=== PATIENT | male | born 1935 | race Caucasian/White ===

== ENCOUNTER 2017-01-02 19:41 | Emergency (ER) | payer MEDICARE, OTHER ==
[2017-01-02 19:47] VITALS: TEMP 97.3
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
[2017-01-02] MEDS ORDERED: BACITRACIN 500 UNIT/GM OINT 28.4 GM TUBE TOPICAL ONE (20:29)
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
[2017-01-02 20:48] VITALS: BP 176/91; PULSE 75; RESP 18
== END 2017-01-02 20:50 | disposition home or self-care (01) ==
LOC: EC 19:41
DX: T23.242A Burn of second degree of multiple left fingers (nail), including thumb, initial encounter (principal); T23.211A Burn of second degree of right thumb (nail), initial encounter; T22.132A Burn of first degree of left upper arm, initial encounter; T31.0 Burns involving less than 10% of body surface; I10 Essential (primary) hypertension; E78.5 Hyperlipidemia, unspecified; Z79.82 Long term (current) use of aspirin; Z79.899 Other long term (current) drug therapy; X02.0XXA Exposure to flames in controlled fire in building or structure, initial encounter; Y93.89 Activity, other specified
CPT/HCPCS: 16020; 71020; 99283

== ENCOUNTER 2017-01-05 15:51 | Emergency (ER) | payer MEDICARE, OTHER ==
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
[2017-01-05 17:03] VITALS: BP 135/69; PULSE 72; RESP 16; TEMP 98.7
== END 2017-01-05 17:03 | disposition home or self-care (01) ==
LOC: EC 15:51
DX: L03.114 Cellulitis of left upper limb (principal); T23.202D Burn of second degree of left hand, unspecified site, subsequent encounter; T22.1 Burn of first degree of shoulder and upper limb, except wrist and hand; T31.0 Burns involving less than 10% of body surface; I10 Essential (primary) hypertension; E78.5 Hyperlipidemia, unspecified; Z79.82 Long term (current) use of aspirin; Z79.899 Other long term (current) drug therapy; X08.8XXD Exposure to other specified smoke, fire and flames, subsequent encounter; Y92.019 Unspecified place in single-family (private) house as the place of occurrence of the external cause
CPT/HCPCS: 99283

== ENCOUNTER → 2017-01-05 | Outpatient (CLI) | payer OTHER ==
--- NOTE | 2017-01-05 16:03 | US ---
EXAMINATION TYPE: US kidneys/renal and bladder DATE OF EXAM: 01/05/2017 COMPARISON: Correlation CT 04/08/2016 CLINICAL HISTORY: 81-year-old male with N19 UNSPECIFIED KIDNEY DISEASE. Pt states abnormal labs. TECHNIQUE: Multiple sonographic images of the kidneys and bladder were obtained. FINDINGS: Right Kidney: 9.9 x 5.4 x 5.2 cm without hydronephrosis. There is a 1.1 cm hypoechoic lesion in the lower pole. A 1.1 cm lesion was seen on the CT of 04/08/2016 as well. Left Kidney: 9.6 x 4.9 x 4.4 cm without hydronephrosis. No gross abnormality of the urine distended bladder. Neither ureteral jet is seen during the course o f the exam. IMPRESSION: 1. No hydronephrosis. 2. A 1.1 cm hypoechoic lesion within the lower pole right kidney. A complicated cyst and small solid mass are both in the differential. The former is considered more likely given the presence of a 1.1 c m lesion on the 04/08/2016 CT. 3. A 6-12 month follow-up renal ultrasound can be considered to reassess this area.
== END | disposition home or self-care (01) ==
LOC: RADUSWWP 15:27
PROVIDERS: ATTEND Family Medicine
DX: N28.1 Cyst of kidney, acquired (principal); N28.89 Other specified disorders of kidney and ureter
CPT/HCPCS: 76770

== ENCOUNTER 2017-02-03 22:24 | Emergency (ER) | payer MEDICARE, OTHER ==
[2017-02-03 22:41] VITALS: TEMP 97.8
[2017-02-03] MEDS ORDERED: HYDROcodone/APAP 10-325MG 1 EACH TAB PO ONE (23:23)
[2017-02-03 23:42] LABS: Basophils % (A) 0 %; CH 31.7; CHCM 34.9; Eosinophils # (A) 0.2 k/uL (0-0.7); Eosinophils % (A) 2 %; HCT 36.3 % (39.0-53.0); HDW 3.01; Luc # (Auto) 0.16; Luc % (Auto) 2; Lymphocytes % (A) 11 %; MCH 30.3 pg (25.0-35.0); MCHC 33.1 g/dL (31.0-37.0); MCV 91.3 fL (80.0-100.0); Mean Platelet Volume 7.5; Monocytes # (A) 0.4 k/uL (0-1.0); Monocytes % (A) 5 %; Neutrophils # (A) 7.1 k/uL (1.3-7.7); Neutrophils % (A) 80 %; RBC 3.97 m/uL (4.30-5.90); RDW 13.9 % (11.5-15.5); WBC 8.8 k/uL (3.8-10.6); WBC (Perox) 9.14
--- NOTE | 2017-02-03 23:45 | ED ---
Extremity Problem HPI - General Chief complaint: Extremity Problem,Nontraumatic Stated complaint: lump on elbow Time Seen by Provider: 02/03/17 22:51 Source: patient, RN notes reviewed, old records reviewed Mode of arrival: ambulatory Limitations: no limitations - History of Present Illness Initial comments: 81-year-old male presents emergency Department chief complaint of a swelling for the past day over his right elbow. Patient reports the pain whenever he does extension. He states that he did not have any trauma to the elbow. He does have a history of gout. Denies any fever or chills. Denies any drainage or redness over the elbow. He reports that he feels very warm. - Related Data Home Medications Medication Instructions Recorded Confirmed Aspirin EC [Ecotrin Low Dose] 81 mg PO DAILY 06/20/14 02/03/17 Atenolol [Tenormin] 25 mg PO HS 06/20/14 02/03/17 Albuterol Inhaler [Ventolin Hfa 1 puff INHALATION RT-QID PRN 02/03/17 02/03/17 Inhaler] Losartan Potassium [Cozaar] 100 mg PO DAILY 02/03/17 02/03/17 Simvastatin 40 mg PO HS 02/03/17 02/03/17 Previous Rx's Medication Instructions Recorded HYDROcodone/APAP 5-325MG [[place]uka 1 tab PO Q6HR PRN #12 tab 02/04/17 5-325] Naproxen 500 mg PO BID #20 tablet 02/04/17 Allergies Allergy/AdvReac Type Severity Reaction Status Date / Time No Known Allergies Allergy Verified 02/03/17 23:07 Review of Systems ROS Statement: Those systems with pertinent positive or pertinent negative responses have been documented in the HPI. ROS Other: All systems not noted in ROS Statement are negative. Past Medical History Past Medical History: Asthma, Hyperlipidemia, Hypertension History of Any Multi-Drug Resistant Organisms: None Reported Past Surgical History: Heart Catheterization With Stent Past Anesthesia/Blood Transfusion Reactions: No Reported Reaction Date of Last Stent Placement:: 1999 Past Psychological History: No Psychological Hx Reported Smoking Status: Never smoker Past Alcohol Use History: None Reported Past Drug Use History: None Reported - Past Family History Mother Family Medical History: Diabetes Mellitus General Exam - General Exam Comments Initial Comments: 81-year-old male. No distress. Limitations: no limitations General appearance: alert, in no apparent distress Head exam: Present: atraumatic Eye exam: Present: normal appearance, PERRL, EOMI. Absent: scleral icterus, conjunctival injection, periorbital swelling ENT exam: Present: normal exam, mucous membranes moist Neck exam: Present: normal inspection. Absent: tenderness, meningismus, lymphadenopathy Respiratory exam: Present: normal lung sounds bilaterally. Absent: respiratory distress, wheezes, rales, rhonchi, stridor Cardiovascular Exam: Present: regular rate, normal rhythm, normal heart sounds. Absent: systolic murmur, diastolic murmur, rubs, gallop, clicks GI/Abdominal exam: Present: soft, normal bowel sounds. Absent: distended, tenderness, guarding, rebound, rigid Extremities exam: Present: normal inspection, full ROM, normal capillary refill. Absent: tenderness, pedal edema, joint swelling, calf tenderness Right Upper Arm exam: Present: normal inspection, full ROM Elbow exam: Present: swelling, effusion, tenderness over radial head. Absent: normal inspection, full ROM Forearm Wrist exam: Present: normal inspection, full ROM Hand Wrist exam: Present: normal inspection, full ROM Neuro motor exam: Present: wrist extension intact, thumb opposition intact, thumb IP flexion intact, thumb adduction intact, fingers 2-5 abduction intact Vascular: Present: normal capillary refill Back exam: Present: normal inspection Neurological exam: Present: alert Psychiatric exam: Present: normal affect, normal mood Skin exam: Present: warm, dry, intact, normal color. Absent: rash Course Vital Signs 02/03/17 02/04/17 22:37 00:18 Temperature 97.8 F 97.8 F Pulse Rate 80 70 Respiratory 18 16 Rate Blood Pressure 167/79 128/70 O2 Sat by Pulse 98 100 Oximetry Procedures - Orthopedic Splinting/Casting Injury #1 Side: right Upper Extremity Injury Location: elbow Upper Extremity Immobilizer: posterior splint (long posterior splint. ) Medical Decision Making - Medical Decision Making 81-year-old male presents emergency Department chief complaint of a swelling for the past day over his right elbow. Patient reports the pain whenever he does extension. He states that he did not have any trauma to the elbow. He does have a history of gout. Denies any fever or chills. Denies any drainage or redness over the elbow. He reports that he feels very warm. Patient appears to have significant olecranon bursitis, elbow is swollen and warm. CBC wihtin normal limits, uric acid mildly elevated 8.8. Patient was placed in a posterior splint, as xray shows evidence of olecranon fracture, and questionable fracture of radial head. Patient denies any trauma to cause this. Patient will follow up with orthopedic. Discharged with antiinflammatories medication and pain medication. Orthopedic follow up advised. - Lab Data Result diagrams: 02/03/17 23:36 02/03/17 23:36 Lab Results 02/03/17 02/03/17 Range/Units 23:36 23:36 WBC 8.8 (3.8-10.6) k/uL RBC 3.97 L (4.30-5.90) m/uL Hgb 12.0 L (13.0-17.5) gm/dL Hct 36.3 L (39.0-53.0) % MCV 91.3 (80.0-100.0) fL MCH 30.3 (25.0-35.0) pg MCHC 33.1 (31.0-37.0) g/dL RDW 13.9 (11.5-15.5) % Plt Count 158 (150-450) k/uL Neutrophils % 80 % Lymphocytes % 11 % Monocytes % 5 % Eosinophils % 2 % Basophils % 0 % Neutrophils # 7.1 (1.3-7.7) k/uL Lymphocytes # 1.0 (1.0-4.8) k/uL Monocytes # 0.4 (0-1.0) k/uL Eosinophils # 0.2 (0-0.7) k/uL Basophils # 0.0 (0-0.2) k/uL Sodium 140 (137-145) mmol/L Potassium 4.6 (3.5-5.1) mmol/L Chloride 109 H (98-107) mmol/L Carbon Dioxide 20 L (22-30) mmol/L Anion Gap 11 mmol/L BUN 27 H (9-20) mg/dL Creatinine 1.70 H (0.66-1.25) mg/dL Est GFR (MDRD) Af Amer 47 (>60 ml/min/1.73 sqM) Est GFR (MDRD) Non-Af 39 (>60 ml/min/1.73 sqM) Glucose 168 H (74-99) mg/dL Uric Acid 8.4 (3.5-8.5) mg/dL Calcium 9.3 (8.4-10.2) mg/dL Total Bilirubin 0.3 (0.2-1.3) mg/dL AST 20 (17-59) U/L ALT 33 (21-72) U/L Alkaline Phosphatase 112 (38-126) U/L Total Protein 6.8 (6.3-8.2) g/dL Albumin 3.9 (3.5-5.0) g/dL - Radiology Data Radiology results: report reviewed X-ray shows 2 small ossicle seen over the olecranon process with significant overlying soft tissue swelling and elevation of the anterior posterior happens. Findings concerning for acute avulsion fracture in this region. Nonspecific 4 mm ossicles also seen in the soft tissues ventral to the distal humerus of unknown etiology. Possibly chronic. Disposition Clinical Impression: Olecranon bursitis of right elbow, Olecranon fracture Disposition: HOME SELF-CARE Condition: Good Instructions: Elbow Fracture in Adults (ED), Elbow Bursitis (ED) Additional Instructions: Patient advised to follow-up with the primary care provider and orthopedic physician. Remain in a splint until seen by orthopedic. Return to the emergency department if any alarming signs or symptoms occur. Prescriptions: HYDROcodone/APAP 5-325MG [[place] 5-325] 1 tab PO Q6HR PRN #12 tab PRN Reason: Pain Naproxen 500 mg PO BID #20 tablet Referrals: Alli Barney DO [Primary Care Provider] - 1-2 days Erick Fontenot MD [STAFF PHYSICIAN] - 1-2 days Time of Disposition: 00:07
[2017-02-03 23:51] LABS: Calcium 9.3 mg/dL (8.4-10.2); Potassium 4.6 mmol/L (3.5-5.1); Total Bilirubin 0.3 mg/dL (0.2-1.3); Total Protein 6.8 g/dL (6.3-8.2); Uric Acid 8.4 mg/dL (3.5-8.5)
--- NOTE | 2017-02-03 23:52 | XR ---
EXAM: XR Right Elbow Complete, 3 or More Views CLINICAL HISTORY: Reason: Pain TECHNIQUE: Frontal, lateral and oblique views of the right elbow. COMPARISON: No relevant prior studies available. FINDINGS: There is prominent soft tissue swelling over the olecranon. 2 small ossicles are seen just overlying the olecranon process measuring about 4 mm and 5 mm respectively. There is a 4 mm ossicle located in the soft tissues ventral to the distal humerus. Anterior and posterior fat pad elevation is seen. IMPRESSION: 2 small ossicles seen over the olecranon process with significant overlying soft tissue swelling and elevation of anterior and posterior fat pads. Findings concerning for acute avulsion fracture in this region. Correlate clinically. A nonspecific 4 mm ossicle is also seen in the soft tissues ventral to the distal humerus of unknown etiology, possibly chronic.
[2017-02-04 00:19] VITALS: BP 128/70; PULSE 70; RESP 16
== END 2017-02-04 00:18 | disposition home or self-care (01) ==
LOC: EC 22:24
DX: S52.021A Displaced fracture of olecranon process without intraarticular extension of right ulna, initial encounter for closed fracture (principal); M70.21 Olecranon bursitis, right elbow; I10 Essential (primary) hypertension; E78.5 Hyperlipidemia, unspecified; Z79.82 Long term (current) use of aspirin; Z79.899 Other long term (current) drug therapy; X58.XXXA Exposure to other specified factors, initial encounter
CPT/HCPCS: 29105; 36415; 80053; 84550; 85025; 99284

== ENCOUNTER 2017-05-12 11:44 | Emergency (ER) | payer MEDICARE, OTHER ==
[2017-05-12] MEDS ORDERED: DIAZEPAM 5 MG TAB ONE (13:40)
[2017-05-12] MEDS ORDERED: MORPHINE SULFATE 2 MG/ML SYRINGE ONE (13:40)
[2017-05-12] MEDS ORDERED: SODIUM CHLORIDE 0.9% 500 ML BAG ONE (14:52)
--- NOTE | 2017-05-13 09:16 | CT ---
EXAMINATION TYPE: TEMPORARY DATE OF EXAM: 05/12/2017 COMPARISON: NONE HISTORY: Right sided flank pain. Examination of the solid and hollow viscera is limited given the lack of contrast. FINDINGS: LUNG BASES: Calcified mediastinal lymph nodes. Small right-sided pleural effusion. Calcified granulom a right lower lobe. Strandy basilar opacities may reflect atelectasis or parenchymal scarring. Small sliding-type hiatal hernia. LIVER/GB: The gallbladder is unremarkable. No space-occupying hepatic lesion. Hepatic granulomas. PANCREAS: No pancreatic mass identified. No inflammatory process seen. Splenic granulomas. SPLEEN: No evidence for splenomegaly. No intrasplenic lesions seen. ADRENALS: No adrenal nodules identified. No evidence for thickening. KIDNEYS: No evidence for renal mass. No nephrolithiasis. No hydronephrosis. BOWEL: Appendix has a normal appearance. No evidence of bowel obstruction. No inflammatory process. Lymph nodes: No evidence for adenopathy greater than 1 cm. Abdominal aorta: Atheromatous changes seen. No evidence for aneurysm. Genital organs: No mild prostate gland enlargement. Other: No significant abnormality. IMPRESSION: 1. No significant abnormality to account for the patient's symptoms.
[2017-05-13 12:43] LABS: Appearance,Urine Clear (Clear); Bilirubin,Urine Negative (Negative); Blood,Urine Small (Negative); Color,Urine Yellow; Glucose,Urine (UA) Negative (Negative); Hyaline Casts,Urine 2 /lpf (0-2); Ketones,Urine Negative (Negative); Leukocyte Esterase,Urine Negative (Negative); Mucus,Urine Occasional /hpf; Nitrite,Urine Negative (Negative); PH, Urine 5.5 (5.0-8.0); Protein,Urine 1+ (Negative); RBC,Urine 1 /hpf (0-5); Specific Gravity,Urine 1.018 (1.001-1.035); Urobilinogen,Urine <2.0 mg/dL (<2.0); WBC,Urine 1 /hpf (0-5)
[2017-05-13 16:18] LABS: Basophils % (A) 0 %; Eosinophils % (A) 0 %; HCT 39.9 % (39.0-53.0); HGB 13.2 gm/dL (13.0-17.5); Lymphocytes # (A) 0.9 k/uL (1.0-4.8); Lymphocytes % (A) 7 %; MCH 30.4 pg (25.0-35.0); MCHC 33.1 g/dL (31.0-37.0); Mean Platelet Volume 6.5; Monocytes # (A) 0.7 k/uL (0-1.0); Monocytes % (A) 6 %; Neutrophils # (A) 9.8 k/uL (1.3-7.7); Neutrophils % (A) 84 %; Platelet Count 172 k/uL (150-450); RBC 4.33 m/uL (4.30-5.90); RDW 13.8 % (11.5-15.5); WBC 11.7 k/uL (3.8-10.6)
[2017-05-13 17:11] LABS: Albumin 4.2 g/dL (3.5-5.0); Calcium 9.9 mg/dL (8.4-10.2); Potassium 5.1 mmol/L (3.5-5.1); Total Bilirubin 0.8 mg/dL (0.2-1.3); Total Protein 7.4 g/dL (6.3-8.2)
== END 2017-05-12 17:30 | disposition home or self-care (01) ==
LOC: EC 11:44
DX: R10.9 Unspecified abdominal pain (principal)
CPT/HCPCS: 36415; 80053; 85025; 81001; 74176; 99284; 96374; 96361; J2270

== ENCOUNTER → 2020-08-07 | Outpatient (CLI) | payer MEDICARE | END | disposition home or self-care (01) | LOC: LABWHC1 15:45 | PROVIDERS: ATTEND Family Medicine | DX: U07.1 COVID-19 (principal) | CPT/HCPCS: U0003; C9803; U0005 ==

== ENCOUNTER → 2020-12-25 | Outpatient (CLI) | payer MEDICARE ==
--- NOTE | 2020-12-26 04:55 | MR ---
EXAMINATION TYPE: MR lumbar spine wo con DATE OF EXAM: 12/25/2020 COMPARISON: CT abdomen pelvis 05/12/2017 HISTORY: Lumbago, sciatica, pain right calf Multiplanar multiecho imaging of the lumbar spine without contrast. Lumbar vertebra have normal alignment. There is degenerative disc space narrowing throughout the lumb ar spine. There is no compression fracture. There is extensive hypertrophic facet arthropathy and lig amentum flavum thickening at multiple levels. There is some moderately severe spinal stenosis at L4-5 . There is very severe stenosis at L3-4. There is very severe stenosis at L2-3. There is a minimal re lative spinal stenosis at L1-2. No significant stenosis seen at L5-S1. There is no lumbar paraspinal mass. I see no focal bone destruction. There is no lumbar paraspinal ma ss. The visualized sacroiliac joints are intact. IMPRESSION: Multilevel severe bony spinal stenosis as above. This is also present on old CT scan. No fracture see n.
== END | disposition home or self-care (01) ==
LOC: RADMRIMAIN 15:56
PROVIDERS: ATTEND Family Medicine
DX: M48.061 Spinal stenosis, lumbar region without neurogenic claudication (principal); M51.36 Other intervertebral disc degeneration, lumbar region
CPT/HCPCS: 72148

== ENCOUNTER 2021-08-15 11:03 | Emergency (ER) | payer MEDICARE ==
[2021-08-15 11:08] VITALS: PULSE 72; RESP 18; TEMP 97.9
[2021-08-15] MEDS ORDERED: ACETAMINOPHEN TAB 325 MG TAB PO STA (11:34)
[2021-08-15 12:10] VITALS: BP 180/83
--- NOTE | 2021-08-15 13:20 | ED ---
ENT HPI - General Chief complaint: Dental/Oral Stated complaint: Tooth pain Time Seen by Provider: 08/15/21 11:19 Source: patient Mode of arrival: ambulatory Limitations: no limitations - History of Present Illness Initial comments: Patient is an 85-year-old male presenting with chief complaint of tooth pain. Patient has a known dental carry on the left upper side. He was given antibiotics by his dentist yesterday. Patient states that he has been a great amount of pain. The pain radiates to his ear and nose. He admits to swelling of the cheek. He has not been taking [id number] pain medication for control. He denies chest pain, shortness of breath, fever, chills, nausea, vomiting, headache, vision or hearing changes, diarrhea, constipation, abdominal pain, neck pain or stiffness. - Related Data Home Medications Medication Instructions Recorded Confirmed Aspirin EC [Ecotrin Low Dose] 81 mg PO DAILY 06/20/14 05/13/17 Atenolol [Tenormin] 25 mg PO HS 06/20/14 05/13/17 Albuterol Inhaler (Mhu) [Ventolin 1 puff INHALATION RT-QID PRN 02/03/17 05/13/17 Hfa Inhaler] Losartan Potassium [Cozaar] 100 mg PO DAILY 02/03/17 05/13/17 Simvastatin 80 mg PO HS 02/03/17 05/13/17 Allopurinol (Unknown Dose) 1 tab PO DAILY 05/13/17 05/13/17 Allergies Allergy/AdvReac Type Severity Reaction Status Date / Time No Known Allergies Allergy Verified 08/15/21 11:04 Review of Systems ROS Statement: Those systems with pertinent positive or pertinent negative responses have been documented in the HPI. ROS Other: All systems not noted in ROS Statement are negative. Past Medical History Past Medical History: Asthma, Hyperlipidemia, Hypertension Additional Past Medical History / Comment(s): gout History of Any Multi-Drug Resistant Organisms: None Reported Past Surgical History: Heart Catheterization With Stent Past Anesthesia/Blood Transfusion Reactions: No Reported Reaction Date of Last Stent Placement:: 1999 Past Psychological History: No Psychological Hx Reported Smoking Status: Never smoker Past Alcohol Use History: None Reported Past Drug Use History: None Reported - Past Family History Mother Family Medical History: Diabetes Mellitus General Exam Limitations: no limitations General appearance: alert, in no apparent distress Head exam: Present: atraumatic, normocephalic, normal inspection Eye exam: Present: normal appearance, PERRL, EOMI. Absent: scleral icterus, conjunctival injection, periorbital swelling ENT exam: Present: mucous membranes moist Expanded Teeth exam: Present: dental caries (Noted dental caries to the left upper side. There is erythema and swelling of the cheek over the corresponding tooth. Tenderness on palpation.) Neck exam: Present: normal inspection. Absent: tenderness, meningismus, lymphadenopathy Respiratory exam: Present: normal lung sounds bilaterally. Absent: respiratory distress, wheezes, rales, rhonchi, stridor Cardiovascular Exam: Present: regular rate, normal rhythm, normal heart sounds. Absent: systolic murmur, diastolic murmur, rubs, gallop, clicks Neurological exam: Present: alert, oriented X3, CN II-XII intact Psychiatric exam: Present: normal affect, normal mood Skin exam: Present: warm, dry, intact, normal color. Absent: rash Course Vital Signs 08/15/21 08/15/21 11:05 12:10 Temperature 97.9 F Pulse Rate 72 Respiratory 18 Rate Blood Pressure 229/90 180/83 O2 Sat by Pulse 99 Oximetry Medical Decision Making - Medical Decision Making Patient is an 85-year-old male presenting with chief complaint of dental pain. Pain began on Monday. He was given antibiotics by his dentist yesterday. Patient has a planned dental extraction due to known severe dental carry. Pain is located on the left upper side, with radiation to the nose and ear. Patient is mainly complaining of pain, states he has not taken anything for pain control. On examination there is clear tooth decay and redness and swelling of the cheek over the corresponding area on the left upper side. There is pain with palpation. Patient is hypertensive on presentation. Patient was given 1 g of Tylenol and BP was rechecked. Blood pressure came down to 180/83. I allowed the patient to sit longer for BP recheck. When I discussed this case with Dr. Yao he stated that as long as the patient was not experiencing other symptoms such as chest pain, shortness of breath, headache, vision or hearing changes, abdominal pain etc. that he was fine to discharge at this time. I educ ated the patient on using Tylenol for pain control. Follow-up with PCP and dentist in one to 2 days. Continue taking antibiotics as prescribed. Report back to ER with any worsening symptoms or new onset alarm symptoms. I educated the patient on return parameters and answered all questions. Patient conveyed verbal understanding and agreed to the plan. I discussed this case with my attending Dr. Yao. Disposition Clinical Impression: Dental abscess Disposition: HOME SELF-CARE Condition: Good Instructions (If sedation given, give patient instructions): Dental Abscess (ED) Additional Instructions: All up with primary care in 1-2 days. Follow-up with dentist in 1-2 days. Take Tylenol as needed for pain control. In the ER you received 1000 mg of Tylenol at 12:00 PM, you must make 6 hours until taking additional Tylenol. Report back to the ER if any worsening symptoms or new onset alarming symptoms. Is patient prescribed a controlled substance at d/c from ED?: No Referrals: [facility],Clinic [Primary Care Provider] - 1-2 days Time of Disposition: 13:20
== END 2021-08-15 13:25 | disposition home or self-care (01) ==
LOC: EC 11:03
DX: K04.7 Periapical abscess without sinus (principal); K02.9 Dental caries, unspecified; I10 Essential (primary) hypertension; E78.5 Hyperlipidemia, unspecified; J45.909 Unspecified asthma, uncomplicated; M10.9 Gout, unspecified; Z79.82 Long term (current) use of aspirin; Z79.51 Long term (current) use of inhaled steroids; Z79.899 Other long term (current) drug therapy
CPT/HCPCS: 99282

== ENCOUNTER → 2022-09-30 | Outpatient (CLI) | payer MEDICARE ==
[2022-09-30 10:01] LABS: INR 0.9 (<1.2); Prothrombin Time 9.8 sec (9.0-12.0)
[2022-09-30 10:58] LABS: Partial Thromboplastin Time 21.5 sec (22.0-30.0)
[2022-09-30 15:25] LABS: HCT 37.5 % (39.6-50.0); HGB 12.5 g/dL (13.0-17.0); MCHC 33.3 g/dL (32.0-37.0); MCV 93.1 fL (80.0-97.0); Mean Platelet Volume 9.6 fL (9.5-12.2); NRBC Per 100 WBC 0 /100 WBCS (0.0-0.0); Platelet Count 199 X 10*3/uL (140-440); RBC 4.03 X 10*6/uL (4.40-5.60); RDW 14.2 % (11.5-14.5); WBC 9.89 X 10*3/uL (4.50-10.00)
[2022-09-30 15:38] LABS: African American GFR (CKD) 38.7 (60.0-200.0); Albumin 4.5 g/dL (3.8-4.9); Albumin/Globulin Ratio 1.77 (1.60-3.17); BUN/Creat Ratio 18.45 Ratio (12.00-20.00); Blood Urea Nitrogen 33.4 mg/dL (9.0-27.0); Calcium 9.8 mg/dL (8.7-10.3); Globulin 2.5 g/dL (1.6-3.3); Non-African American GFR(CKD) 33.4 (60.0-200.0); Potassium 5.1 mmol/L (3.5-5.5); Total Bilirubin 0.2 mg/dL (0.30-1.20)
[2022-09-30 16:35] LABS: Appearance,Urine Clear (Clear); Bilirubin,Urine Negative (Negative); Blood,Urine Negative (Negative); Color,Urine Yellow (Yellow); Ketones,Urine Negative (Negative); Nitrite,Urine Negative (Negative); Specific Gravity,Urine 1.007 (1.001-1.030); Urobilinogen,Urine 0.2 (0.2,1.0)
== END | disposition home or self-care (01) ==
LOC: LABPAT 08:22
PROVIDERS: ATTEND Orthopaedic Surgery
DX: Z01.818 Encounter for other preprocedural examination (principal); M17.12 Unilateral primary osteoarthritis, left knee; R94.31 Abnormal electrocardiogram [ECG] [EKG]
CPT/HCPCS: 80053; 81003; 85027; 85610; 85730; 87070

== ENCOUNTER → 2023-10-06 | Outpatient (CLI) | payer OTHER, SELFPAY ==
--- NOTE | 2023-10-07 03:23 | US ---
EXAMINATION TYPE: US kidneys/renal and bladder DATE OF EXAM: 10/06/2023 COMPARISON: CT abdomen and pelvis 05/13/2017, renal ultrasound 01/05/2017 CLINICAL INDICATION: Male, 87 years old with history of N18.32 CHRONIC KIDNEY DISEASE; CKD EXAM MEASUREMENTS: Right Kidney: 9.0 x 3.9 x 5.2 cm Left Kidney: 10.5 x 4.3 x 4.9 cm Post Void Residual Volume: 151 mL Right Kidney: No hydronephrosis or masses seen . Previously seen lower right pole lesion is not visua lized on today's exam. Left Kidney: No hydronephrosis or masses seen Bladder: wnl Normal Post Void Residual: No There is no evidence for hydronephrosis at this point in time. No nephrolithiasis is seen. No marry s are identified. Cortical medullary differentiation is maintained bilaterally. Cortical thinning cesario aterally. The urinary bladder is anechoic. Bilateral ureteral jets are not seen. Abnormal post void residual. IMPRESSION: 1. No hydronephrosis or nephrolithiasis. 2. Findings of chronic medical renal disease bilaterally. 3. Abnormal postvoid residual. Correlate for chronic outlet obstruction versus other etiologies.
== END | disposition home or self-care (01) ==
LOC: RADUSWWP 12:57
PROVIDERS: ATTEND Internal Medicine Nephrology
DX: N18.32 Chronic kidney disease, stage 3b (principal); R39.198 Other difficulties with micturition
CPT/HCPCS: 76770

== ENCOUNTER 2024-09-09 08:43 | Day surgery (SDC) | payer OTHER, SELFPAY ==
[~2024-09-09 08:43] MED LIST: ALPRAZolam 0.25 MG TAB PO PRN; ALPRAZolam 0.5 MG TAB PO PRN; ASPIRIN 81 MG PO PRN; CLOPIDOGREL 75 MG TAB PO PRN; NITROGLYCERIN SL TABS 0.4 MG TAB SUBLINGUAL PRN
[2024-09-09] MEDS: SODIUM CHLORIDE 0.9% 1,000 ML in EMPTY BAG 1 BAG IV ONE (09:27)
[2024-09-09] MEDS: IV FLUID CONTINUATION 1,000 ML IV ONE (09:30)
[2024-09-09 09:34] VITALS: RESP 16; TEMP 98.4
[2024-09-09] MEDS: LIDOCAINE 1% INJ 10MG/ML (30 ML VIAL-PF) SQ ONE (11:10)
[2024-09-09] MEDS: VERAPAMIL SYRINGE (5 MG/10 ML) INTRAARTER ONE (11:10)
[2024-09-09] MEDS: MIDAZOLAM 2 MG/2 ML VIAL IVP ONE (11:15)
[2024-09-09] MEDS: fentaNYL (PF) 50 MCG/1 ML VIAL IVP ONE (11:15)
[2024-09-09] MEDS: HEPARIN SODIUM 1,000 UN/ML (10ML VL) IVP ONE (11:16)
[2024-09-09] MEDS: IOPAMIDOL-300 100ML BTL INJ ONE ×2 (11:30)
--- NOTE | 2024-09-09 12:00 | P.PCN ---
Description of Procedure: DESCRIPTION OF PROCEDURE(S): PROCEDURES PERFORMED: selective left carotid angiography INDICATION: Carotid artery stenosis CONSENT:I have discussed the risks, benefits and alternative therapies for the above-mentioned procedure and for both sedation/analgesia as well as necessary blood product administration, if indicated, as they pertain to this patient. The patient has indicated understanding and acceptance of the risks and procedures discussed. PROCEDURE: After the risks, benefits and alternatives of the above mentioned p rocedure explained in detail with the patient, informed consent was obtained. Patient was taken to the catheterization lab and prepped and draped in usual fashion. 1% lidocaine was used to anesthetize the right radial area. A 6- [place] sheath was placed in the right radial artery using modified Seldinger technique and ultrasound guidmance. Given contrast trheshold, limited images were obtained and no arch angiography was performed. Next using Sim 2 catheter the left carotid artery was selectively engaged and selective angiography was performed. Angiography showed 85% LICA disease. Given contrast threshold no intervention was recommended at this point. A TR band was placed with hemostasis achieved. The patient tolerated the procedure well. Patient was transported back to the post catheterization holding area in stable condition. Conscious Sedation: Patient was monitored under the direct supervision of vision of myself for conscious sedation using Versed and fentanyl for a total duration of 20 minutes Left common carotid: No stenosis Left internal carotid artery: There is calcified 85% proximal LICA stenosis Left external carotid artery: There is 95% left external carotid artery stenosis FINAL IMPRESSION: 1. 85% left internal carotid artery stenosis 2. Limited angiograms taken given CKD PLAN: 1. Aggressive risk factor modification per most recent ACC/AHA guidelines. 2. Consider left carotid stent vs medical therapy after further discussion of risks and benefits.
--- NOTE | 2024-09-09 13:50 | IR ---
EXAMINATION TYPE: IR angio carotid cereb LT DATE OF EXAM: 09/09/2024 1:30 PM COMPARISON: Pre Operative Images if available both CT/MRI or plain film CLINICAL INDICATION: Male, 88 years old with history of TIA, 5.2min fluoro, 16.1Gycm2; TECHNIQUE: IR angio carotid cereb LT, multiple fluoroscopic images provided for procedure. DAP: 16.1 mGym2 Gycm2 uGym2 cGycm2 or equivalent. FINDINGS: IMPRESSION: 1. Report was generated for administrative purposes only. 2. Please see the operative/procedural note for further details. [facility], , 09/09/2024 1:48 PM
[2024-09-09 16:33] VITALS: BP 149/77; PULSE 60
== END 2024-09-09 15:03 | disposition home or self-care (01) ==
LOC: CATHCVL 08:43
PROVIDERS: ATTEND Internal Medicine
DX: I65.22 Occlusion and stenosis of left carotid artery (principal); N18.9 Chronic kidney disease, unspecified; Z86.73 Personal history of transient ischemic attack (TIA), and cerebral infarction without residual deficits; E78.5 Hyperlipidemia, unspecified; I12.9 Hypertensive chronic kidney disease with stage 1 through stage 4 chronic kidney disease, or unspecified chronic kidney disease; I25.10 Atherosclerotic heart disease of native coronary artery without angina pectoris; I24.9 Acute ischemic heart disease, unspecified; Z79.82 Long term (current) use of aspirin
CPT/HCPCS: 36224; 36222; C1894 ×2; C1769 ×2; J2250; J2003; J1644; Q9967; J3010